=== PATIENT | female | born 1975 | race Caucasian/White ===

== ENCOUNTER 2022-07-13 08:53 | Day surgery (SDC) | payer BC, OTHER ==
[~2022-07-13 08:53] MED LIST: Lactated Ringers 1,000 ML IV SCH; Sodium Chloride 0.9% 10 ML Syringe FLUSH PRN
[2022-07-13] MEDS ORDERED: Propofol 200 MG/20 ML SDV IV ONE (08:54)
[2022-07-13] MEDS ORDERED: Ondansetron 4 MG/2 ML SDV IVPUSH ONE (08:54)
[2022-07-13] MEDS ORDERED: Midazolam 1 MG/ML 2 ML SDV IV ONE (08:54)
[2022-07-13] MEDS ORDERED: fentaNYL 100 MCG/2 ML SDV IV ONE (08:54)
[2022-07-13] MEDS ORDERED: Ketorolac 30 MG/ML SDV IVPUSH ONE (08:54)
[2022-07-13] MEDS ORDERED: Lidocaine 0.5% 50 ML SDV INJECT ONE (08:54)
[2022-07-13] MEDS ORDERED: Bupivacaine 0.5% 50 ML MDV INJECT ONE (12:03)
== END 2022-07-13 13:45 | disposition home or self-care (01) ==
LOC: FB.SDS 08:53
PROVIDERS: ATTEND Surgery
DX: G56.02 Carpal tunnel syndrome, left upper limb (principal); E78.00 Pure hypercholesterolemia, unspecified; G47.00 Insomnia, unspecified; M85.80 Other specified disorders of bone density and structure, unspecified site; Z98.890 Other specified postprocedural states; Z79.899 Other long term (current) drug therapy
CPT/HCPCS: 01810; 64721; J1885; J2250; J2405; J2704; J3010; J3490; J7120